=== PATIENT | male | born 1995 | race Hispanic/Latino ===

== ENCOUNTER 2021-01-20 15:18 | Emergency (ER) | payer BC ==
[~2021-01-20] VITALS: Ht 167.6 cm; Wt 90.7 kg
[2021-01-20] MEDS ORDERED: SULFACETAMIDE S15 ML OS (17:19)
[2021-01-20] MEDS ORDERED: AUGMENTIN 875-1 EACH PO (17:20)
== END 2021-01-20 17:29 | disposition home or self-care (01) ==
LOC: FSED 16:12
DX: H05.012 Cellulitis of left orbit (principal); H10.9 Unspecified conjunctivitis
CPT/HCPCS: 99282

== ENCOUNTER 2021-05-25 07:43 | Emergency (ER) | payer BC ==
[~2021-05-25] VITALS: Ht 167.6 cm; Wt 90.7 kg
[~2021-05-25 07:43] MED LIST: AUGMENTIN 875-1 EACH PO; SULFACETAMIDE S15 ML OS
[2021-05-25] MEDS ORDERED: KETOROLAC TROMETHAMINE 60 MG/2 ML VIAL ONE (08:03)
[2021-05-25] MEDS ORDERED: ACETAMINOPHEN 325 MG TAB ONE (08:03)
[2021-05-25] MEDS ORDERED: CYCLOBENZAPRINE10 MG PO (08:29)
[2021-05-25] MEDS ORDERED: IBUPROFEN600 MG PO (08:29)
== END 2021-05-25 09:25 | disposition home or self-care (01) ==
LOC: FSED 07:46
DX: M54.50 Low back pain, unspecified (principal); X50.0XXA Overexertion from strenuous movement or load, initial encounter; Y99.0 Civilian activity done for income or pay
CPT/HCPCS: 72100; 99283; J1885

== ENCOUNTER 2021-12-22 18:28 | Emergency (ER) | payer BC, OTHER ==
[~2021-12-22] VITALS: Ht 167.6 cm; Wt 90.7 kg
[~2021-12-22 18:28] MED LIST changes: +CYCLOBENZAPRINE10 MG PO; +IBUPROFEN600 MG PO
[2021-12-22] MEDS ORDERED: DOCUSATE SODIUM LIQD 100 MG/10 ML UDC PO ONE (19:30)
[2021-12-22] MEDS ORDERED: DOCUSATE SODIUM LIQD 100 MG/10 ML UDC ONE (19:34)
[2021-12-22] MEDS ORDERED: CORTISPORIN-TC10 M1 LEFT EAR (20:08)
[2021-12-22 20:15] VITALS: BP 137/78
== END 2021-12-22 20:15 | disposition home or self-care (01) ==
LOC: FSED 18:59
DX: H92.02 Otalgia, left ear (principal); H61.22 Impacted cerumen, left ear
CPT/HCPCS: 99282